=== PATIENT | male | born 1990 | race Two or more races ===

== ENCOUNTER 2019-03-01 15:34 | Emergency (ER) | payer MEDICAID ==
[~2019-03-01] VITALS: Ht 165.1 cm; Wt 79.4 kg
[2019-03-01 15:47] VITALS: BP 138/84
[2019-03-01] MEDS ORDERED: TETANUS-DIPTH-ACEL PERTUSSIS 0.5ML SYRG IM ONE (18:00)
== END 2019-03-01 18:27 | disposition home or self-care (01) ==
LOC: ER 15:34
DX: S61.432A Puncture wound without foreign body of left hand, initial encounter (principal); W22.8XXA Striking against or struck by other objects, initial encounter; Y93.89 Activity, other specified; Y99.0 Civilian activity done for income or pay; Y92.89 Other specified places as the place of occurrence of the external cause
CPT/HCPCS: 73130; 90471; 90715

== ENCOUNTER 2019-07-15 20:54 | Emergency (ER) | payer MEDICAID ==
[~2019-07-15] VITALS: Ht 165.1 cm; Wt 79.4 kg
[2019-07-15 21:30] VITALS: BP 129/83
== END 2019-07-16 00:20 | disposition home or self-care (01) ==
LOC: ER 20:57
DX: J03.90 Acute tonsillitis, unspecified (principal); H92.01 Otalgia, right ear